=== PATIENT | female | born 1985 | race Two or more races ===

== ENCOUNTER 2019-12-13 00:12 | Emergency (ER) | payer OTHER ==
[~2019-12-13] VITALS: Ht 157.5 cm; Wt 70.0 kg
[2019-12-13 00:16] VITALS: BP 121/60
== END 2019-12-13 01:00 | disposition left against medical advice (07) ==
LOC: ER 00:12
DX: R10.13 Epigastric pain (principal); R11.2 Nausea with vomiting, unspecified; Z53.21 Procedure and treatment not carried out due to patient leaving prior to being seen by health care provider